=== PATIENT | female | born 1990 | race Caucasian/White ===

== ENCOUNTER 2022-02-23 16:33 | Emergency (ER) | payer MEDICAID ==
[~2022-02-23] VITALS: Ht 170.2 cm; Wt 83.9 kg
--- NOTE | 2022-02-23 16:45 | NUR ---
BIBS THIS 31YO.F WITH c/o RLQ pain x 1 year on and off worst the last 2 days 10 ps. PLACED COMFORTABLY IN BED. VITALS CHECKED.
--- NOTE | 2022-02-23 16:50 | NUR ---
URINE SPECIMEN SENT TO LAB
[2022-02-23] MEDS ORDERED: KETOROLAC TROMETHAMINE INJ 30 MG/ML VIAL IV ONE (17:00)
--- NOTE | 2022-02-23 17:12 | NUR ---
IV CANNULA G20 INSERTED ON LEFT AC. BLOOD DRAWN AND SENT TO LAB
[2022-02-23 17:20] LABS: BASOPHILS % (AUTO) 0.5 % (0.0-2.0); EOSINOPHILS % (AUTO) 2.8 % (0.0-6.0); HEMATOCRIT 37 % (33-45); HEMOGLOBIN 12.5 g/dL (11.5-14.8); LYMPHOCYTES # (AUTO) 1.6 K/uL (0.8-4.8); LYMPHOCYTES % (AUTO) 21.5 % (20.0-44.0); MEAN CORPUSCULAR HGB CONC 34 g/dl (31.0-36.0); MEAN CORPUSCULAR VOLUME 86 fL (82-100); MONOCYTES # (AUTO) 0.3 K/uL (0.1-1.30); MONOCYTES % (AUTO) 3.7 % (2.0-12.0); NEUTROPHILS # (AUTO) 5.3 K/uL (1.8-8.9); NEUTROPHILS % (AUTO) 71.5 % (43.0-81.0); PLATELET COUNT (AUTO) 181 K/uL (150-450); RED BLOOD CELL COUNT(AUTO) 4.26 MIL/uL (4.0-5.2); WHITE BLOOD COUNT (AUTO) 7.4 K/uL (4.3-11.0)
[2022-02-23 17:26] LABS: CALCIUM, SERUM 8.7 mg/dL (8.5-10.1); CREATININE 0.8 mg/dL (0.6-1.3); POTASSIUM 3.4 mmol/L (3.5-5.1)
--- NOTE | 2022-02-23 17:52 | NUR ---
patient signed disclaimer that she is not
[2022-02-23] MEDS ORDERED: KETOROLAC TROMETHAMINE 15 MG/ML VIAL ONE (17:53)
--- NOTE | 2022-02-23 17:57 | NUR ---
ivpush toradol 15mg given
[2022-02-23 18:35] LABS: BILIRUBIN,URINE NEGATIVE (NEGATIVE); COLOR,URINE YELLOW (YELLOW); LEUKOCYTE ESTERASE ,URINE NEGATIVE (NEGATIVE); NITRITE, URINE NEGATIVE (NEGATIVE); PROTEIN,URINE TRACE mg/dl (NEGATIVE); UGLUCOSE NEGATIVE (NEGATIVE); UROBILINOGEN,URINE 0.2 EU/dL (0.2)
[2022-02-23 18:43] LABS: BACTERIA,URINE RARE /HPF (None Seen); RBC,URINE 51-80 /HPF (0-2); WBC,URINE 0-2 /HPF (0-3)
--- NOTE | 2022-02-23 19:19 | NUR ---
PT WAS WHEELED TO CT DEPT.
[2022-02-23] MEDS ORDERED: CT SWABBABLE VALVE TRANS SET 1 EA INFUS.SET MC ONE (19:24)
[2022-02-23] MEDS ORDERED: IV NS 0.9% 250 ML IV ONE (19:24)
[2022-02-23] MEDS ORDERED: IOHEXOL-350 100 ML VIAL IV ONE (19:24)
--- NOTE | 2022-02-23 20:50 | NUR ---
PELVIC SET UP DONE WITH DR CROWLEY
[2022-02-23] MEDS ORDERED: IBUP-1957 PO (20:59)
[2022-02-23] MEDS ORDERED: CYCL5TAB PO (20:59)
--- NOTE | 2022-02-23 21:32 | NUR ---
Patient discharged to home in stable condition. Written and verbal after care instructions given. Patient verbalizes understanding of instruction.
[2022-02-23 21:34] VITALS: BP 130/77
== END 2022-02-23 21:34 | disposition home or self-care (01) ==
LOC: ER 16:40
DX: R10.31 Right lower quadrant pain (principal); Z79.899 Other long term (current) drug therapy
CPT/HCPCS: 36415; 74177; 76856; 80048; 81001; 84703; 85025; 96374; 99285; J1885; J7050; Q9967